=== PATIENT | male | born 1980 | race African-American/Black ===

== ENCOUNTER 2019-01-30 18:43 | Inpatient (IN) | payer SELFPAY ==
[2019-01-30] MEDS ORDERED: IPRATROPIUM/ALBUTEROL 0.5-2.5 MG/3 ML AMPUL NEB ONE ×4 (18:47→22:00)
[2019-01-30] MEDS ORDERED: MAGNESIUM SULFATE/D5W 2 GM/200 ML RTUPB IV ONE (18:48)
[2019-01-30] MEDS ORDERED: METHYLPREDNISOLONE INJ 125 MG/2 ML SDV ONE (18:48)
[2019-01-30] MEDS ORDERED: METHYLPREDNISOLONE INJ 125 MG/2 ML SDV IV ONE (18:51)
[2019-01-30] MEDS ORDERED: NORMAL SALINE 1000 ML 1,000 ML IV ONE (18:52)
[2019-01-30] MEDS: MAGNESIUM SULFATE/D5W 1 GM/100 ML RTUPB IV SCH ×2 (18:57→19:25)
--- NOTE | 2019-01-30 19:08 | ER Document Report ---
ED General - General Chief Complaint: Breathing Difficulty Stated Complaint: DIFFICULTY BREATHING Time Seen by Provider: 01/30/19 18:51 Notes: Patient is a 38-year-old male without chronic medical problems, reports a history of chronic tobacco abuse, presents in severe respiratory distress. For the past 2 days he has had increasing wheezing, shortness of breath, feels like he cannot breathe. Is also been coughing but no associated sputum production. He denies any history of similar symptoms in the past. He does not have a primary care doctor. Nothing seems to improve his symptoms. Any form of worsening or smoking exertion worsens his symptoms. He denies pleuritic pain or chest pain. No fever or constitutional symptoms. History is otherwise limited secondary to the patient's distress. TRAVEL OUTSIDE OF THE [place] IN LAST 30 DAYS: No - Related Data Allergies/Adverse Reactions: No Known Allergies Allergy (Unverified 01/30/19 18:48) Past Medical History - General Information source: Patient - Social History Smoking Status: Current Every Day Smoker Frequency of alcohol use: Occasional Drug Abuse: None Lives with: Spouse/Significant other Family History: Reviewed & Not Pertinent Review of Systems - Review of Systems Notes: Constitutional: Negative for fever. HENT: Negative for sore throat. Eyes: Negative for visual changes. Cardiovascular: Negative for chest pain. Respiratory: Positive for shortness of breath and cough Gastrointestinal: Negative for abdominal pain, vomiting or diarrhea. Genitourinary: Negative for dysuria. Musculoskeletal: Negative for back pain. Skin: Negative for rash. Neurological: Negative for headaches, weakness or numbness. 10 point ROS negative except as marked above and in HPI. Physical Exam - Vital signs Vitals: Resp Pulse Ox 25 H 99 01/30/19 18:51 01/30/19 18:51 Interpretation: Tachycardic, Tachypneic Notes: PHYSICAL EXAMINATION: GENERAL: In moderate to severe respiratory distress his weight HEAD: Atraumatic, normocephalic. EYES: Pupils equal round and reactive to light, extraocular movements intact, sclera anicteric, conjunctiva are normal. ENT: nares patent, oropharynx clear without exudates. Moderately dry mucous membranes. NECK: Normal range of motion, supple without lymphadenopathy LUNGS: Moderate to severe respiratory distress, tachypneic to 35-40 breaths/min. Diminished air movement throughout. Coarse wheezing in all lung bundy. Retracting in all spaces. HEART: Regular tachycardia without murmurs ABDOMEN: Soft, nontender, normoactive bowel sounds. No guarding, no rebound. No masses appreciated. EXTREMITIES: Normal range of motion, no pitting or edema. No cyanosis. NEUROLOGICAL: No focal neurological deficits. Moves all extremities spontaneously and on command. PSYCH: Anxious but appropriate to situation SKIN: Warm, Dry, normal turgor, no rashes or lesions noted. Course - Re-evaluation Re-evalutation: 01/30/19 18:53 Documentation is delayed as I was of this patient upon his arrival into the department. In summary the patient presents in moderate to severe respiratory distress. Unable to speak beyond 2 words in a sentence without requiring additional breath. Patient is retracting the supraclavicular intercostal spaces. He has poor air movement in all lung bundy and coarse expiratory wheezing in all lung bundy. He has no known history of obstructive lung disease. Does smoke. States that his symptoms been going on for 2 days but history is otherwise limited secondary to the patient's degree of distress. The patient was immediately started on continuous albuterol and ipratropium nebulizer. IV access was established. Patient will be given 2 g of magnesium rapidly over 10 minutes. Solu-Medrol 125 mg will be administered. 1 L of IV fluids will likely be administered. Labs, chest x-ray pending. Patient has been placed on continuous monitoring. He is high risk for decompensation, possible advancement for need for positive pressure ventilation. Will be reassessed at regular intervals. He is in guarded condition. 01/30/19 19:18 Chest x-ray is clear. Patient's work of breathing has markedly improved. He is now able to speak in full sentences, no longer having retractions. He does still have coarse respiratory wheezing in all lung bundy although his air movement is overall much improved. Will continue to monitor at regular intervals. He remains on continuous nebulizers. 01/30/19 20:42 Patient remains mildly tachypneic although saturating 97% on room air off nebulizers. Continues with coarse expiratory wheezing in all lung bundy. Will require hospitalization. Plan consult with hospitalist. 01/30/19 21:14 I have spoken with the on-call hospitalist who has accepted the patient for admission to the telemetry unit. - Vital Signs Vital signs: Temp Pulse Resp BP Pulse Ox 98.5 F 72 27 H 142/83 H 100 01/30/19 20:52 01/30/19 18:54 01/30/19 19:01 01/30/19 19:00 01/30/19 19:01 - Laboratory Result Diagrams: 01/30/19 19:00 01/30/19 19:00 Laboratory results interpreted by me: 01/30/19 01/30/19 19:00 19:00 Eosinophils % 7.0 H Calcium 10.7 H - Diagnostic Test Radiology reviewed: Image reviewed, Reports reviewed Radiology results interpreted by me: 01/30/19 21:13 Chest x-ray: No acute infiltrate or pneumothorax Critical Care Note - Critical Care Note Total time excluding time spent on procedures (mins): 36 Comments: Critical care time spent obtaining history from patient or surrogate, development of treatment plan with patient or surrogate, evaluation of patient's response to treatment, examination of patient, ordering and performing treatments and interventions, ordering and review of laboratory studies, re- evaluation of patient's condition, ordering and review of radiographic studies and review of old charts Discharge - Discharge Clinical Impression: Respiratory distress, Wheezing Asthma Qualifiers: Asthma severity: unspecified severity Asthma persistence: unspecified Asthma complication type: with acute exacerbation Qualified Code(s): J45.901 - Unspecified asthma with (acute) exacerbation Condition: Fair Disposition: ADMITTED INPATIENT Admitting Provider: Hospitalist Unit Admitted: Telemetry
[2019-01-30 19:14] LABS: ABSOLUTE BASOPHILS # (AUTO) 0.1 10^3/uL (0.0-0.2); ABSOLUTE EOSINOPHILS # (AUTO) 0.6 10^3/uL (0.0-0.6); ABSOLUTE LYMPHOCYTES (AUTO) 3.2 10^3/uL (0.5-4.7); ABSOLUTE MONOCYTES (AUTO) 0.8 10^3/uL (0.1-1.4); ABSOLUTE NEUT (AUTO) 4.3 10^3/uL (1.7-8.2); BASOPHILS % (AUTO) 0.9 % (0-2); HEMATOCRIT 47.6 % (37.9-51.0); HEMOGLOBIN 15.9 g/dL (13.5-17.0); LYMPHOCYTES % (AUTO) 35.4 % (13-45); MEAN CORPUSCULAR HEMOGLOBIN 29.9 pg (27.0-33.4); MEAN CORPUSCULAR HGB CONC 33.4 g/dL (32.0-36.0); MEAN CORPUSCULAR VOLUME 90 fl (80-97); MONOCYTES % (AUTO) 8.9 % (3-13); PLATELET COUNT 357 10^3/uL (150-450); RED BLOOD COUNT 5.32 10^6/uL (4.35-5.55); RED CELL DISTRIBUTION WIDTH 13.8 % (11.5-14.0); SEGMENTED NEUTROPHILS % (AUTO) 47.8 % (42-78); TOTAL CELLS COUNTED % (AUTO) 100 %
--- NOTE | 2019-01-30 19:14 | RADIOLOGY REPORT (SQ) ---
EXAM DESCRIPTION: CHEST SINGLE VIEW COMPLETED DATE/TIME: 01/30/2019 7:07 pm REASON FOR STUDY: sob COMPARISON: 12/19/2010 TECHNIQUE: Single frontal radiographic view of the chest acquired. NUMBER OF VIEWS: One view. LIMITATIONS: None. FINDINGS: LUNGS AND PLEURA: No pneumothorax. No consolidation or pleural effusion. MEDIASTINUM AND HILAR STRUCTURES: Stable. HEART AND VASCULAR STRUCTURES: Stable. BONES: No acute findings. HARDWARE: None in the chest. OTHER: No other significant finding. IMPRESSION: NO ACUTE FINDINGS. TECHNICAL DOCUMENTATION: JOB ID: [id number] [place]-72 2010 [employer]- All Rights Reserved Reading location - IP/workstation name: [email or web address]
[2019-01-30] MEDS ORDERED: ALBUTEROL SULFATE 0.083% NEB 2.5 MG/3 ML AMPUL NEB ONE ×2 (19:18→21:13)
[2019-01-30 19:24] LABS: ANION GAP 10 (5-19); BLOOD UREA NITROGEN 16 mg/dL (7-20); CALCIUM 10.7 mg/dL (8.4-10.2); CARBON DIOXIDE 30 mmol/L (22-30); CHLORIDE 102 mmol/L (98-107); GLUCOSE 88 mg/dL (75-110); POTASSIUM 4.3 mmol/L (3.6-5.0); SODIUM 141.5 mmol/L (137-145)
[2019-01-30] MEDS ORDERED: MAG HYDROX/AL HYDROX/SIMETH SUSP 30 ML UDCUP PO PRN (21:15)
[2019-01-30] MEDS ORDERED: ZOLPIDEM TARTRATE 5 MG TABLET PO PRN (21:15)
[2019-01-30] MEDS ORDERED: ONDANSETRON HCL INJ/PF 4 MG/2 ML SDV IV PRN (21:15)
[2019-01-30] MEDS ORDERED: ACETAMINOPHEN 325 MG TABLET PO PRN (21:15)
[2019-01-30] MEDS ORDERED: MAGNESIUM HYDROXIDE SUSP 30 ML UDCUP PO PRN (21:15)
[2019-01-30] MEDS ORDERED: ACETAMINOPHEN 650 MG SUPP.RECT PR PRN (21:15)
[2019-01-30] MEDS: FAMOTIDINE 20 MG TABLET PO SCH (22:00)
[2019-01-30] MEDS: GUAIFENESIN 600 MG TABLET.SA PO SCH (22:00)
[2019-01-30] MEDS ORDERED: CEFTRIAXONE 1 GM/D5W RTU 1 GM/50 ML RTUPB IV SCH (22:00)
[2019-01-30] MEDS ORDERED: AZITHROMYCIN INJ 500 MG VIAL IV ONE (23:00)
[2019-01-30] MEDS ORDERED: HYDRALAZINE HCL INJ/PF 20 MG/1 ML SDV IV PRN (23:10)
[2019-01-30] MEDS ORDERED: LORAZEPAM INJ 2 MG/1 ML VIAL IV PRN (23:10)
--- NOTE | 2019-01-30 23:11 | PDOC H&P ---
History of Present Illness Admission Date/PCP: 01/30/19 21:23 Primary CARE physician: None Patient complains of: Shortness of breath and wheezing History of Present Illness: BROOKE KRISHNAMURTHY is a 38 year old -Monegasque male with history of seasonal allergies as well as ongoing tobacco abuse who presented to the emergency room with acute onset of worsening cough as well as wheezing and dyspnea over the last 3 days. His cough has been mainly dry and congested with inability to expectorate. He denies any fever or chills. No chest pain or palpitations. No nausea or vomiting or abdominal pain. No leg pain or edema. Upon presentation to the emergency room, his blood pressure was 152/104 and later 142/83 with a pulse of 72, respiratory rate of 28 and temperature of 97.9 with a pulse oximetry of 96% on room air. Labs are remarkable for calcium of 10.7. The patient was given several nebulized duo nebs and albuterol in the ER as well as IV magnesium sulfate and IV Solu-Medrol and was still wheezing. He will be admitted to a medically monitored bed for further evaluation and management. Past Medical History Past Medical History: Ongoing tobacco abuse EENT History Note: Allergic rhinitis Past Surgical History Past Surgical History: Reports: None Social History Lives with: Spouse/Significant other Smoking Status: Current Every Day Smoker - Half a pack of cigars per day for 20 years Amount of Alcoholic Beverages Per Day: 3 beers per day Hx Recreational Drug Use: No Family History Family History: DM, Malignancy Parental Family History Reviewed: Yes Children Family History Reviewed: Yes Sibling(s) Family History Reviewed.: Yes Medication/Allergy Allergies/Adverse Reactions: No Known Allergies Allergy (Unverified 01/30/19 18:48) Review of Systems Review of Systems: As per history of present illness. All pertinent systems were reviewed above. Constitutional, HEENT, cardiovascular, respiratory, GI, , musculoskeletal, neuro, psychiatric, endocrine, integumentary and hematologic systems were reviewed and are otherwise negative/unremarkable except for positive findings mentioned above in the HPI. Physical Exam Vital Signs: Temp Pulse Resp BP Pulse Ox 98.5 F 72 23 H 144/70 H 96 01/30/19 20:52 01/30/19 18:54 01/30/19 22:01 01/30/19 22:00 01/30/19 22:01 Intake & Output 01/29/19 01/30/19 01/31/19 06:59 06:59 06:59 Intake Total 1200 Balance 1200 Weight 75 kg Exam: Generally: Pleasant middle-aged -Monegasque male in mild respiratory distress with conversational dyspnea Vital signs-as listed Head - atraumatic, normocephalic. Pupils - equal, round and reactive to light and accommodation. Extraocular movements are intact. No scleral icterus. Oropharynx - moist mucous membranes and tongue. No pharyngeal erythema or exudate. Neck - supple. No JVD. Carotid pulses 2+ bilaterally. No carotid bruits. No palpable thyromegaly or lymphadenopathy. Cardiovascular - regular rate and rhythm. Normal S1 and S2. No murmurs, gallops or rubs. Lungs -diffuse expiratory wheezes with tight expiratory airflow and occasional inspiratory wheezes and harsh vesicular breathing. Abdomen - soft and nontender. Positive bowel sounds. No palpable organomegaly or masses. Extremities - no pitting edema, clubbing or cyanosis. Neuro - grossly non-focal. Skin - no rashes. and rectal exam - deferred. Results Laboratory Results: 01/30/19 19:00 01/30/19 19:00 01/30/19 01/30/19 19:00 19:00 WBC 9.0 RBC 5.32 Hgb 15.9 Hct 47.6 MCV 90 MCH 29.9 MCHC 33.4 RDW 13.8 Plt Count 357 Seg Neutrophils % 47.8 Lymphocytes % 35.4 Monocytes % 8.9 Eosinophils % 7.0 H Basophils % 0.9 Absolute Neutrophils 4.3 Absolute Lymphocytes 3.2 Absolute Monocytes 0.8 Absolute Eosinophils 0.6 Absolute Basophils 0.1 Sodium 141.5 Potassium 4.3 Chloride 102 Carbon Dioxide 30 Anion Gap 10 BUN 16 Creatinine 1.20 Est GFR ( Amer) > 60 Est GFR (Non-Af Amer) > 60 Glucose 88 Calcium 10.7 H Impressions: Chest X-Ray 01/30/19 18:52 IMPRESSION: NO ACUTE FINDINGS. Assessment and Plan - Diagnosis (1) Acute bronchospasm Is this a current diagnosis for this admission?: Yes Plan: The patient has a prolonged history of tobacco abuse. He could be having underlying COPD developing and this presents a COPD exacerbation. He also has a history of allergic rhinitis and seasonal allergies and this could be a manifestation of new onset asthma exacerbation. The patient will be admitted to a medically monitored bed and will be placed on IV steroid therapy with IV Solu-Medrol as well as nebulized bronchodilator therapy with duonebs q.i.d. and q.4 hours p.r.n., mucolytic therapy with Mucinex and antibiotic therapy with IV Rocephin and Zithromax. Sputum Gram stain culture and sensitivity will be obtained. O2 protocol will be followed. (2) Acute bronchitis Is this a current diagnosis for this admission?: Yes Plan: He will be placed on IV Rocephin and Zithromax. Mucolytic's will be provided sputum Gram stain culture and sensitivity will be obtained. (3) Tobacco abuse Is this a current diagnosis for this admission?: Yes Plan: I counseled the patient for smoking cessation and the patient will receive further counseling here. (4) ETOH abuse Is this a current diagnosis for this admission?: Yes Plan: Will place on as needed IV Ativan and a banana bag daily (5) Elevated blood pressure reading Is this a current diagnosis for this admission?: Yes Plan: His blood pressure has improved after treatment with nebulized bronchodilator therapy. Will be followed while he is here. As needed hydralazine will be provided (6) Allergic rhinitis Is this a current diagnosis for this admission?: Yes Plan: No current exacerbation. (7) DVT prophylaxis Is this a current diagnosis for this admission?: Yes Plan: Substance Lovenox - Time Medications reviewed and adjusted accordingly: Yes Anticipated discharge: Home Within: within 36 hours - Inpatient Certification Medical Necessity: Need Close Monitoring Due to Risk of Patient Decompensation, Need for Nebulizer Therapy and Monitoring of Response, Risk of Complication if Not Cared For in Hospital - Plan Summary Plan Summary: The plan of care was discussed in details with the patient. I answered all questions. The patient agreed to proceed with the above-mentioned plan. The patient is presumably full code. This note was created by [employer] software and may contain typo errors that may have not been proofread.
[2019-01-30] MEDS ORDERED: THIAMINE HCL INJ 200 MG/2 ML VIAL IV ONE (23:59)
[2019-01-30] MEDS ORDERED: MAGNESIUM SULFATE INJ 8 MEQ/2 ML IV ONE (23:59)
[2019-01-30] MEDS ORDERED: MVI, ADULT NO.1 WITH VIT K INJ 10 ML VIAL IV ONE (23:59)
[2019-01-31] MEDS ORDERED: AZITHROMYCIN INJ 500 MG VIAL IV ONE (01:21)
[2019-01-31] MEDS: NORMAL SALINE 1000 ML 1,000 ML IV PRN ×3 (02:08→23:30)
[2019-01-31] MEDS ORDERED: MVI, ADULT NO.1 WITH VIT K INJ 10 ML VIAL IV ONE ×4 (02:30→10:00)
[2019-01-31] MEDS ORDERED: POTASSI CL 20 MEQ/NS 1L 1,000 ML IV ONE ×2 (02:30→03:00)
[2019-01-31] MEDS ORDERED: THIAMINE HCL INJ 200 MG/2 ML VIAL IV ONE ×3 (02:30→03:00)
[2019-01-31] MEDS ORDERED: MAGNESIUM SULFATE INJ 8 MEQ/2 ML IV ONE ×3 (02:30→03:00)
[2019-01-31] MEDS ORDERED: IPRATROPIUM/ALBUTEROL 0.5-2.5 MG/3 ML AMPUL NEB PRN ×2 (04:47→08:00)
[2019-01-31 06:25] LABS: ABSOLUTE LYMPHOCYTES (AUTO) 1.1 10^3/uL (0.5-4.7); ABSOLUTE MONOCYTES (AUTO) 0.6 10^3/uL (0.1-1.4); ABSOLUTE NEUT (AUTO) 11.8 10^3/uL (1.7-8.2); BASOPHILS % (AUTO) 0.2 % (0-2); HEMATOCRIT 41.9 % (37.9-51.0); HEMOGLOBIN 14.1 g/dL (13.5-17.0); LYMPHOCYTES % (AUTO) 7.9 % (13-45); MEAN CORPUSCULAR HEMOGLOBIN 29.9 pg (27.0-33.4); MEAN CORPUSCULAR HGB CONC 33.7 g/dL (32.0-36.0); MEAN CORPUSCULAR VOLUME 89 fl (80-97); MONOCYTES % (AUTO) 4.8 % (3-13); PLATELET COUNT 277 10^3/uL (150-450); RED BLOOD COUNT 4.74 10^6/uL (4.35-5.55); RED CELL DISTRIBUTION WIDTH 13.7 % (11.5-14.0); SEGMENTED NEUTROPHILS % (AUTO) 87.1 % (42-78); TOTAL CELLS COUNTED % (AUTO) 100 %; WHITE BLOOD COUNT 13.5 10^3/uL (4.0-10.5)
[2019-01-31 06:46] LABS: ANION GAP 15 (5-19); BLOOD UREA NITROGEN 11 mg/dL (7-20); CALCIUM 10.4 mg/dL (8.4-10.2); CARBON DIOXIDE 22 mmol/L (22-30); CHLORIDE 104 mmol/L (98-107); GLUCOSE 117 mg/dL (75-110); POTASSIUM 4.6 mmol/L (3.6-5.0)
[2019-01-31] MEDS: ENOXAPARIN SODIUM INJ 40 MG/0.4 ML DISP.SYRIN SUBCUT SCH (09:08)
[2019-01-31] MEDS: GUAIFENESIN 600 MG TABLET.SA PO SCH ×2 (09:08→23:36)
[2019-01-31] MEDS: FAMOTIDINE 20 MG TABLET PO SCH ×2 (09:08→23:36)
[2019-01-31] MEDS ORDERED: IPRATROPIUM/ALBUTEROL 0.5-2.5 MG/3 ML AMPUL NEB ONE (12:45)
--- NOTE | 2019-01-31 14:25 | PDOC PROGRESS REPORT ---
Subjective Progress Note for:: 01/31/19 Subjective:: BROOKE KRISHNAMURTHY is a 38 year old -[place]ese male with history of seasonal allergies as well as ongoing tobacco abuse who presented to the emergency room with acute onset of worsening cough as well as wheezing and dyspnea over the last 3 days. He was admitted to the hospitalist service for asthma vs. COPD exacerbation. The patient was seen this morning on rounds, he is resting comfortably in bed on room the patient endorses shortness of breath but states he feels much better than yesterday. Wheezing can be auscultated in all lung bundy. The patient endorses a dry cough. No evidence of central or peripheral cyanosis. 125 mg Solu-Medrol was administered in the emergency department, plan to continue scheduled IV steroids. Increased frequency of DuoNeb treatments from every 6 hours to every 4 hours. The patient was being treated with Rocephin and azithromycin, a treatment regimen typically used for community-acquired pneumonia. However, there are no infiltrates present on CXR and patient endorses a nonproductive cough. Discontinue Rocephin and azithromycin, switched to doxycycline, indicated for empiric antibiotic treatment in patients with mild COPD exacerbation. Reason For Visit: COPD EXACERBATION Physical Exam Vital Signs: Temp Pulse Resp BP Pulse Ox 97.3 F 88 20 148/83 H 96 01/31/19 08:05 01/31/19 12:26 01/31/19 12:26 01/31/19 08:05 01/31/19 12:26 Intake & Output 01/30/19 01/31/19 02/01/19 06:59 06:59 06:59 Intake Total 1200 1050 Balance 1200 1050 Weight 72.9 kg General appearance: PRESENT: well-developed, well-nourished Eye exam: PRESENT: conjunctiva pink, PERRLA Mouth exam: PRESENT: moist, tongue midline Teeth exam: PRESENT: poor dentation Neck exam: PRESENT: full ROM Respiratory exam: PRESENT: symmetrical, unlabored, wheezes Cardiovascular exam: PRESENT: +S1, +S2 Pulses: PRESENT: normal radial pulses, normal dorsalis pedis pul Vascular exam: PRESENT: normal capillary refill GI/Abdominal exam: PRESENT: soft. ABSENT: distended, tenderness Rectal exam: PRESENT: deferred Extremities exam: PRESENT: full ROM. ABSENT: pedal edema Musculoskeletal exam: PRESENT: ambulatory, full ROM Neurological exam: PRESENT: alert, awake, oriented to person, oriented to place, oriented to time, oriented to situation Psychiatric exam: PRESENT: appropriate affect Skin exam: PRESENT: dry, intact, normal color Results Laboratory Results: 01/31/19 06:16 01/31/19 06:16 01/30/19 01/30/19 01/31/19 19:00 19:00 06:16 WBC 9.0 13.5 H RBC 5.32 4.74 Hgb 15.9 14.1 Hct 47.6 41.9 MCV 90 89 MCH 29.9 29.9 MCHC 33.4 33.7 RDW 13.8 13.7 Plt Count 357 277 Seg Neutrophils % 47.8 87.1 H Lymphocytes % 35.4 7.9 L Monocytes % 8.9 4.8 Eosinophils % 7.0 H 0.0 Basophils % 0.9 0.2 Absolute Neutrophils 4.3 11.8 H Absolute Lymphocytes 3.2 1.1 Absolute Monocytes 0.8 0.6 Absolute Eosinophils 0.6 0.0 Absolute Basophils 0.1 0.0 Sodium 141.5 Potassium 4.3 Chloride 102 Carbon Dioxide 30 Anion Gap 10 BUN 16 Creatinine 1.20 Est GFR ( Amer) > 60 Est GFR (Non-Af Amer) > 60 Glucose 88 Calcium 10.7 H 01/31/19 06:16 WBC RBC Hgb Hct MCV MCH MCHC RDW Plt Count Seg Neutrophils % Lymphocytes % Monocytes % Eosinophils % Basophils % Absolute Neutrophils Absolute Lymphocytes Absolute Monocytes Absolute Eosinophils Absolute Basophils Sodium 141.0 Potassium 4.6 Chloride 104 Carbon Dioxide 22 Anion Gap 15 BUN 11 Creatinine 1.04 Est GFR ( Amer) > 60 Est GFR (Non-Af Amer) > 60 Glucose 117 H Calcium 10.4 H Impressions: Chest X-Ray 01/30/19 18:52 IMPRESSION: NO ACUTE FINDINGS. Status: Imported from PACS Assessment and Plan - Diagnosis (1) Respiratory distress Is this a current diagnosis for this admission?: Yes Plan: Likely stemming from undiagnosed emphysema/COPD Patient endorses 20-year history of smoking 1.5 pack/day CXR shows no evidence of PNA, appears to demonstrate chronic changes associated with COPD - flattened diaphragm, widened intercostal spaces, etc. Maintains SPO2>88% on room air Scheduled and as needed nebulizer treatments Scheduled IV Solu-Medrol Scheduled inhalers Plan for pulmonary function test Counseled patient on the need for smoking cessation (2) ETOH abuse Is this a current diagnosis for this admission?: Yes Plan: Patient endorses history of heavy EtOH use Daily thiamine and folate (3) Tobacco abuse Is this a current diagnosis for this admission?: Yes Plan: Patient endorses 20 years of smoking 1-1.5 packs/day Patient states he is ready to quit Denies cravings, no nicotine patch - Time Time Spent with patient: 15-24 minutes Medications reviewed and adjusted accordingly: Yes Anticipated discharge: Home - Inpatient Certification Based on my medical assessment, after consideration of the patient's comorbidities, presenting symptoms, or acuity I expect that the services needed warrant INPATIENT care.: Yes I certify that my determination is in accordance with my understanding of Medicare's requirements for reasonable and necessary INPATIENT services [42 CFR 412.3e].: Yes Medical Necessity: Need For Continuous Telemetry Monitoring, Need for Nebulizer Therapy and Monitoring of Response, Risk of Complication if Not Cared For in Hospital
[2019-01-31] MEDS: IPRATROPIUM/ALBUTEROL 0.5-2.5 MG/3 ML AMPUL NEB SCH ×2 (14:55→19:56)
[2019-01-31] MEDS: TIOTROPIUM BROMIDE DPI 5 CAP/KIT (18 MCG/CAP) IH SCH (15:58)
[2019-01-31] MEDS: MULTIVITAMIN TABLET PO SCH (15:58)
[2019-01-31] MEDS: FOLIC ACID 1 MG TABLET PO SCH (15:58)
[2019-01-31] MEDS: METHYLPREDNISOLONE INJ 40 MG/1 ML SDV IV SCH (17:10)
[2019-01-31] MEDS ORDERED: NORMAL SALINE 1000 ML 1,000 ML with POTASSIUM CHLORIDE 20 MEQ, MAGNESIUM SULFATE 8 MEQ,... IV SCH ×5 (18:00)
[2019-01-31] MEDS: DOXYCYCLINE HYCLATE 100 MG TABLET PO SCH (23:37)
[2019-01-31] MEDS: SALMETEROL XINAFOATE DISKUS 50 MCG/1 DOSE 28 DOSE IH SCH (23:40)
[2019-01-31] MEDS ORDERED: POTASSI CL 20 MEQ/NS 1L 1,000 ML IV PRN (23:59)
[2019-02-01] MEDS: METHYLPREDNISOLONE INJ 40 MG/1 ML SDV IV SCH ×4 (00:50→22:44)
[2019-02-01] MEDS: IPRATROPIUM/ALBUTEROL 0.5-2.5 MG/3 ML AMPUL NEB SCH ×3 (02:23→17:47)
[2019-02-01 05:20] LABS: ABSOLUTE BASOPHILS # (AUTO) 0.1 10^3/uL (0.0-0.2); ABSOLUTE EOSINOPHILS # (AUTO) 0.1 10^3/uL (0.0-0.6); ABSOLUTE LYMPHOCYTES (AUTO) 1.1 10^3/uL (0.5-4.7); ABSOLUTE MONOCYTES (AUTO) 0.2 10^3/uL (0.1-1.4); ABSOLUTE NEUT (AUTO) 12.5 10^3/uL (1.7-8.2); BASOPHILS % (AUTO) 0.5 % (0-2); EOSINOPHILS % (AUTO) 0.4 % (0-6); HEMATOCRIT 40.7 % (37.9-51.0); HEMOGLOBIN 13.9 g/dL (13.5-17.0); LYMPHOCYTES % (AUTO) 7.8 % (13-45); MEAN CORPUSCULAR HEMOGLOBIN 30.1 pg (27.0-33.4); MEAN CORPUSCULAR HGB CONC 34.1 g/dL (32.0-36.0); MEAN CORPUSCULAR VOLUME 88 fl (80-97); MONOCYTES % (AUTO) 1.4 % (3-13); PLATELET COUNT 279 10^3/uL (150-450); RED BLOOD COUNT 4.61 10^6/uL (4.35-5.55); RED CELL DISTRIBUTION WIDTH 13.8 % (11.5-14.0); SEGMENTED NEUTROPHILS % (AUTO) 89.9 % (42-78); TOTAL CELLS COUNTED % (AUTO) 100 %; WHITE BLOOD COUNT 13.9 10^3/uL (4.0-10.5)
[2019-02-01 05:44] LABS: ALANINE AMINOTRANSFERASE 28 U/L (21-72); ALBUMIN 4.2 g/dL (3.5-5.0); ALKALINE PHOSPHATASE 63 U/L (38-126); ANION GAP 10 (5-19); ASPARTATE AMINO TRANSFERASE 27 U/L (17-59); BILIRUBIN,DIRECT 0.4 mg/dL (0.0-0.4); BILIRUBIN,TOTAL 0.7 mg/dL (0.2-1.3); BLOOD UREA NITROGEN 13 mg/dL (7-20); CALCIUM 10.3 mg/dL (8.4-10.2); CARBON DIOXIDE 23 mmol/L (22-30); CHLORIDE 105 mmol/L (98-107); GLUCOSE 119 mg/dL (75-110); POTASSIUM 4.9 mmol/L (3.6-5.0); SODIUM 137.7 mmol/L (137-145); TOTAL PROTEIN 7.7 g/dL (6.3-8.2)
[2019-02-01] MEDS: FAMOTIDINE 20 MG TABLET PO SCH ×2 (09:25→22:44)
[2019-02-01] MEDS: FOLIC ACID 1 MG TABLET PO SCH (09:26)
[2019-02-01] MEDS: MULTIVITAMIN TABLET PO SCH (09:26)
[2019-02-01] MEDS: LORATADINE 10 MG TABLET PO SCH (09:26)
[2019-02-01] MEDS: DOXYCYCLINE HYCLATE 100 MG TABLET PO SCH ×2 (09:26→22:44)
[2019-02-01] MEDS: GUAIFENESIN 600 MG TABLET.SA PO SCH ×2 (09:26→22:44)
[2019-02-01] MEDS: ENOXAPARIN SODIUM INJ 40 MG/0.4 ML DISP.SYRIN SUBCUT SCH (09:27)
[2019-02-01] MEDS: TIOTROPIUM BROMIDE DPI 5 CAP/KIT (18 MCG/CAP) IH SCH (09:27)
[2019-02-01] MEDS: SALMETEROL XINAFOATE DISKUS 50 MCG/1 DOSE 28 DOSE IH SCH (09:28)
[2019-02-01] MEDS ORDERED: ACETAMINOPHEN 650 MG SUPP.RECT PR PRN (09:54)
[2019-02-01] MEDS ORDERED: ALBUTEROL SULFATE 0.083% NEB 2.5 MG/3 ML AMPUL NEB PRN (10:53)
--- NOTE | 2019-02-01 17:19 | PDOC PROGRESS REPORT ---
Subjective Progress Note for:: 02/01/19 Subjective:: BROOKE KRISHNAMURTHY is a 38 year old male with history of seasonal allergies as well as ongoing tobacco abuse who presented to the emergency room with acute onset of worsening cough as well as wheezing and dyspnea over the last 3 days. He was admitted to the hospitalist service for asthma vs. COPD exacerbation. The patient was seen was found sitting up to the edge of the bed comfortably on room air. He does report that he is feeling much better. He does continue to have shortness of breath with minimal activity and audible wheezing. Overall he reports that his symptoms are much improved from the time of his admission. He denies fever, chills, chest pain, palpitations, dyspnea while at rest, orthopnea, abdominal pain, nausea vomiting and diarrhea. He has no new questions or concerns. No concerns per nursing Reason For Visit: COPD EXACERBATION Physical Exam Vital Signs: Temp Pulse Resp BP Pulse Ox 97.6 F 93 16 138/63 H 91 L 02/01/19 08:29 02/01/19 09:06 02/01/19 09:06 02/01/19 08:29 02/01/19 09:06 Intake & Output 01/31/19 02/01/19 02/02/19 06:59 06:59 06:59 Intake Total 1200 3500 1000 Balance 1200 3500 1000 Weight 72.9 kg 71.7 kg General appearance: PRESENT: no acute distress, well-developed, well-nourished Head exam: PRESENT: atraumatic, normocephalic Eye exam: PRESENT: conjunctiva pink, EOMI, PERRLA. ABSENT: scleral icterus Ear exam: PRESENT: normal external ear exam Mouth exam: PRESENT: moist, tongue midline Neck exam: ABSENT: carotid bruit, JVD, lymphadenopathy, thyromegaly Respiratory exam: PRESENT: symmetrical, unlabored, wheezes - Throughout. ABSENT: rales, rhonchi Cardiovascular exam: PRESENT: RRR. ABSENT: diastolic murmur, rubs, systolic murmur Pulses: PRESENT: normal dorsalis pedis pul Vascular exam: PRESENT: normal capillary refill GI/Abdominal exam: PRESENT: normal bowel sounds, soft. ABSENT: distended, guarding, mass, organolmegaly, rebound, tenderness Rectal exam: PRESENT: deferred Extremities exam: PRESENT: full ROM. ABSENT: calf tenderness, clubbing, pedal edema Neurological exam: PRESENT: alert, awake, oriented to person, oriented to place, oriented to time, oriented to situation, CN II-XII grossly intact. ABSENT: motor sensory deficit Psychiatric exam: PRESENT: appropriate affect, normal mood. ABSENT: homicidal ideation, suicidal ideation Skin exam: PRESENT: dry, intact, warm. ABSENT: cyanosis, rash Results Laboratory Results: 02/01/19 04:57 02/01/19 04:57 02/01/19 02/01/19 02/01/19 04:57 04:57 04:57 WBC 13.9 H RBC 4.61 Hgb 13.9 Hct 40.7 MCV 88 MCH 30.1 MCHC 34.1 RDW 13.8 Plt Count 279 Seg Neutrophils % 89.9 H Lymphocytes % 7.8 L Monocytes % 1.4 L Eosinophils % 0.4 Basophils % 0.5 Absolute Neutrophils 12.5 H Absolute Lymphocytes 1.1 Absolute Monocytes 0.2 Absolute Eosinophils 0.1 Absolute Basophils 0.1 Sodium 137.7 Potassium 4.9 Chloride 105 Carbon Dioxide 23 Anion Gap 10 BUN 13 Creatinine 1.02 Est GFR ( Amer) > 60 Est GFR (Non-Af Amer) > 60 Glucose 119 H Calcium 10.3 H Magnesium 2.0 Total Bilirubin 0.7 AST 27 ALT 28 Alkaline Phosphatase 63 Total Protein 7.7 Albumin 4.2 Impressions: Chest X-Ray 01/30/19 18:52 IMPRESSION: NO ACUTE FINDINGS. Assessment and Plan - Diagnosis (1) COPD exacerbation Is this a current diagnosis for this admission?: Yes Plan: Improved; patient is now maintaining oxygen saturations on room air. Secondary to COPD (new diagnosis) exacerbation. Patient endorses 20-year history of smoking 1.5 pack/day CXR shows no evidence of PNA, appears to demonstrate chronic changes associated with COPD - flattened diaphragm, widened intercostal spaces, etc. Initial PFT demonstrates severe obstructive lung disease; final report not yet available He is admitted to [facility] on continuous cardiac telemetry. He is provided supplemental oxygen as needed to maintain saturations >89% Scheduled and as needed nebulizer treatments; have begun weaning frequency of scheduled nebs. Scheduled IV Solu-Medrol; have begun weaning steroids. Continue doxycycline for COPD exacerbation with bronchitis. Resume home dose Claritin. Mucinex twice daily. Flutter valve to bedside. (2) Tobacco abuse Is this a current diagnosis for this admission?: Yes Plan: Patient endorses 20 years of smoking 1-1.5 packs/day Patient states he is ready to quit Nicotine replacement therapies are offered; continues to be declined by patient. (3) ETOH abuse Is this a current diagnosis for this admission?: Yes Plan: Patient endorses history of heavy EtOH use Daily thiamine and folate Monitor closely for evidence of EtOH withdrawal; PRN IV Ativan available as needed for anxiety/agitation/withdrawal symptoms. (4) Respiratory distress Is this a current diagnosis for this admission?: Yes Plan: Resolved. Secondary to COPD exacerbation; management as above. - Time Time Spent with patient: 15-24 minutes Medications reviewed and adjusted accordingly: Yes Anticipated discharge: Home Within: within 48 hours
[2019-02-02] MEDS: IPRATROPIUM/ALBUTEROL 0.5-2.5 MG/3 ML AMPUL NEB SCH ×2 (00:01→08:16)
[2019-02-02] MEDS: METHYLPREDNISOLONE INJ 40 MG/1 ML SDV IV SCH (05:08)
[2019-02-02 05:36] LABS: ABSOLUTE LYMPHOCYTES (AUTO) 1.8 10^3/uL (0.5-4.7); ABSOLUTE MONOCYTES (AUTO) 0.5 10^3/uL (0.1-1.4); ABSOLUTE NEUT (AUTO) 13.2 10^3/uL (1.7-8.2); BASOPHILS % (AUTO) 0.2 % (0-2); HEMATOCRIT 41.6 % (37.9-51.0); HEMOGLOBIN 14.1 g/dL (13.5-17.0); LYMPHOCYTES % (AUTO) 11.3 % (13-45); MEAN CORPUSCULAR HGB CONC 33.9 g/dL (32.0-36.0); MEAN CORPUSCULAR VOLUME 89 fl (80-97); MONOCYTES % (AUTO) 3.4 % (3-13); PLATELET COUNT 321 10^3/uL (150-450); RED CELL DISTRIBUTION WIDTH 13.9 % (11.5-14.0); SEGMENTED NEUTROPHILS % (AUTO) 85.1 % (42-78); TOTAL CELLS COUNTED % (AUTO) 100 %; WHITE BLOOD COUNT 15.6 10^3/uL (4.0-10.5)
[2019-02-02 06:03] LABS: ANION GAP 12 (5-19); BLOOD UREA NITROGEN 17 mg/dL (7-20); CARBON DIOXIDE 23 mmol/L (22-30); CHLORIDE 102 mmol/L (98-107); GLUCOSE 113 mg/dL (75-110); POTASSIUM 4.9 mmol/L (3.6-5.0); SODIUM 136.9 mmol/L (137-145)
[2019-02-02] MEDS: GUAIFENESIN 600 MG TABLET.SA PO SCH (10:34)
[2019-02-02] MEDS: FAMOTIDINE 20 MG TABLET PO SCH (10:34)
[2019-02-02] MEDS: MULTIVITAMIN TABLET PO SCH (10:34)
[2019-02-02] MEDS: LORATADINE 10 MG TABLET PO SCH (10:34)
[2019-02-02] MEDS: FOLIC ACID 1 MG TABLET PO SCH (10:34)
[2019-02-02] MEDS: TIOTROPIUM BROMIDE DPI 5 CAP/KIT (18 MCG/CAP) IH SCH (10:34)
[2019-02-02] MEDS: DOXYCYCLINE HYCLATE 100 MG TABLET PO SCH (10:34)
[2019-02-02] MEDS: ENOXAPARIN SODIUM INJ 40 MG/0.4 ML DISP.SYRIN SUBCUT SCH (10:38)
[2019-02-02 11:07] VITALS: BP 122/64
--- NOTE | 2019-02-06 20:14 | PDOC DISCHARGE SUMMARY ---
General - Admit/Disc Date/PCP Admission Date/Primary Care Provider: 01/30/19 21:23 Discharge Date: 02/02/19 - Discharge Diagnosis (1) COPD exacerbation Is this a current diagnosis for this admission?: Yes Summary: Improved; acute exacerbation has resolved. Patient is now asymptomatic and maintaining oxygen saturations on room air. Secondary to COPD (new diagnosis) Patient endorses 20-year history of smoking 1.5 pack/day CXR shows no evidence of PNA, appears to demonstrate chronic changes associated with COPD - flattened diaphragm, widened intercostal spaces, etc. Initial PFT demonstrates severe obstructive lung disease; final report not yet available He was admitted to [facility] on continuous cardiac telemetry and provided supplemental oxygen as needed to maintain saturations >89%, scheduled and as needed nebulizer treatments, and IV Solu-Medrol. Solu-Medrol has been weaned to p.o. prednisone at discharge. He was placed on p.o. doxycycline for COPD exacerbation with bronchitis and provided a prescription to complete the course of therapy post discharge. Continue home dose Claritin. He is encouraged to STOP smoking and continue Flutter valve use at home. He is started on Spriva and Servent maintenance therapy. The patient is discharged in stable condition, asymptomatic (other than occasional slight wheezing), and maintaining oxygen saturation while ambulatory on room air. He is advised of the importance of discontinuing his tobacco use. He is instructed to follow up with his PCP within 1 week and to return to the emergency department as needed for concerning symptoms. (2) Tobacco abuse Is this a current diagnosis for this admission?: Yes Summary: Patient endorses 20 years of smoking 1-1.5 packs/day Patient states he is ready to quit. Prescription for NicoDerm patches is provided at discharge. (3) ETOH abuse Is this a current diagnosis for this admission?: Yes Summary: Patient endorses history of heavy EtOH use; no symptoms of withdrawal during admission. Advised decreased alcohol consumption. Recommend daily multivitamin, thiamine and folate supplementation. (4) Respiratory distress Is this a current diagnosis for this admission?: Yes Summary: Resolved. Secondary to COPD exacerbation; management as above. - Additional Information Discharge Diet: Regular Discharge Activity: Activity As Tolerated Prescriptions: Albuterol Sulfate [Albuterol Sulfate Hfa] 8.5 gm IH Q4HP PRN #1 hfa.aer.ad PRN Reason: Doxycycline Hyclate [Vibramycin 100 mg Tablet] 100 mg PO Q12 #10 tablet Guaifenesin [Mucinex Sr 600 mg Tablet.sa] 600 mg PO Q12 #14 tablet.sa Nicotine [Nicoderm 21 mg/24 Hr Transderm Patch] 1 patch TD DAILY #30 patch.td24 Prednisone [Deltasone] 20 mg PO ASDIR PRN #20 tablet PRN Reason: Salmeterol Xinafoate [Serevent Diskus 50 Mcg/Dose 28 Dose/Diskus] 50 mcg IH Q12 #1 disk Tiotropium [place] [Spiriva Handihaler 5 Cap/Kit (18 Mcg/Cap)] 1 cap IH DAILY #1 kit Home Medications: Loratadine [Claritin 10 mg Tablet] 10 mg PO DAILY 01/31/19 Multivitamin [Tab-A-Scar (Multiple Vitamin) Tablet] 1 tab PO DAILY 01/31/19 Acetaminophen [Tylenol 325 mg Tablet] 650 mg PO Q4HP PRN tablet 02/02/19 Albuterol Sulfate [Albuterol Sulfate Hfa] 8.5 gm IH Q4HP PRN #1 hfa.aer.ad 02/02/19 Doxycycline Hyclate [Vibramycin 100 mg Tablet] 100 mg PO Q12 #10 tablet 02/02/19 Folic Acid [Folvite 1 mg Tablet] 1 mg PO DAILY #0 tablet 02/02/19 Guaifenesin [Mucinex Sr 600 mg Tablet.sa] 600 mg PO Q12 #14 tablet.sa 02/02/19 Multivitamin [Tab-A-Scar (Multiple Vitamin) Tablet] 1 tab PO DAILY tablet 02/02/19 Nicotine [Nicoderm 21 mg/24 Hr Transderm Patch] 1 patch TD DAILY #30 patch.td24 02/02/19 Prednisone [Deltasone] 20 mg PO ASDIR PRN #20 tablet 02/02/19 Salmeterol Xinafoate [Serevent Diskus 50 Mcg/Dose 28 Dose/Diskus] 50 mcg IH Q12 #1 disk 02/02/19 Tiotropium [place] [Spiriva Handihaler 5 Cap/Kit (18 Mcg/Cap)] 1 cap IH DAILY #1 kit 02/02/19 History of Present Illness History of Present Illness: Per H&P by Dr. Rausch: BROOKE KRISHNAMURTHY is a 38 year old -Turk[place] male with history of seasonal allergies as well as ongoing tobacco abuse who presented to the emergency room with acute onset of worsening cough as well as wheezing and dyspnea over the last 3 days. His cough has been mainly dry and congested with inability to expectorate. He denies any fever or chills. No chest pain or palpitations. No nausea or vomiting or abdominal pain. No leg pain or edema. Upon presentation to the emergency room, his blood pressure was 152/104 and later 142/83 with a pulse of 72, respiratory rate of 28 and temperature of 97.9 with a pulse oximetry of 96% on room air. Labs are remarkable for calcium of 10.7. The patient was given several nebulized duo nebs and albuterol in the ER as well as IV magnesium sulfate and IV Solu-Medrol and was still wheezing. He will be admitted to a medically monitored bed for further evaluation and management. Physical Exam Vital Signs: Temp Pulse Resp BP Pulse Ox 98.1 F 72 16 122/64 97 02/02/19 11:05 02/02/19 11:05 02/02/19 11:05 02/02/19 11:05 02/02/19 11:05 General appearance: PRESENT: no acute distress, well-developed, well-nourished Head exam: PRESENT: atraumatic, normocephalic Eye exam: PRESENT: conjunctiva pink, EOMI, PERRLA. ABSENT: scleral icterus Mouth exam: PRESENT: moist, tongue midline Neck exam: ABSENT: carotid bruit, JVD, lymphadenopathy, thyromegaly Respiratory exam: PRESENT: symmetrical, unlabored, wheezes - Slight end expiratory wheeze. ABSENT: rales, rhonchi Cardiovascular exam: PRESENT: RRR. ABSENT: diastolic murmur, rubs, systolic murmur Pulses: PRESENT: normal dorsalis pedis pul Vascular exam: PRESENT: normal capillary refill GI/Abdominal exam: PRESENT: normal bowel sounds, soft. ABSENT: distended, guarding, mass, organolmegaly, rebound, tenderness Rectal exam: PRESENT: deferred Extremities exam: PRESENT: full ROM. ABSENT: calf tenderness, clubbing, pedal edema Neurological exam: PRESENT: alert, awake, oriented to person, oriented to place, oriented to time, oriented to situation, CN II-XII grossly intact. ABSENT: motor sensory deficit Psychiatric exam: PRESENT: appropriate affect, normal mood. ABSENT: homicidal ideation, suicidal ideation Skin exam: PRESENT: dry, intact, warm. ABSENT: cyanosis, rash Results Laboratory Results: 02/02/19 05:03 02/02/19 05:03 Impressions: Chest X-Ray 01/30/19 18:52 IMPRESSION: NO ACUTE FINDINGS. Qualifiers - * PATIENT BEING DISCHARGED WITH ANY OF THE FOLLOWING DIAGNOSIS: No Plan Discharge Plan: Follow up with PCP in 1 week. Recommend continued maintenance therapy (Serevent/Spiriva). STOP smoking. Return to the ED as needed for concerning symptoms. Time Spent: Less than 30 Minutes
--- NOTE | 2019-02-08 16:02 | Pulmonary Function Test ---
Pulmonary Function Test Date of Procedure:: 01/31/19 INDICATION:: Dyspnea Referring Provider: Jennifer Vieira NP Button Broacher: Shyla Price REED DIPPER - Report Spirometry: FVC 2.85 L 59% postbronchodilator 3.02 L 63% FEV1 1.46 L 36% postbronchodilator 1.44 L 37% FEV1/FVC % 52 postbronchodilator 48 predicted 82 FEF 25-75% 1.15 L 29% postbronchodilator 0.83 L 21% Impression: Obstructive ventilatory defect with insignificant response to bronchodilator therapy. This in and of itself does not preclude a clinical trial of bronchodilator therapy. Restrictive defect is possible but cannot be diagnosed on the basis of spirometry alone. (Restrictive defect may mask the degree of obstruction)
== END 2019-02-02 12:45 | disposition home or self-care (01) | DRG 192 ==
LOC: ER 18:43 → EH 21:23 → 3W 23:59
PROVIDERS: ADMIT Family Medicine; ATTEND Family Medicine
PROC: 3E0F3GC Introduction of Other Therapeutic Substance into Respiratory Tract, Percutaneous Approach (ICD-10-PCS; principal; 2019-02-01)
PROC: 3E02340 Introduction of Influenza Vaccine into Muscle, Percutaneous Approach (ICD-10-PCS; 2019-02-02)
DX: J44.0 Chronic obstructive pulmonary disease with (acute) lower respiratory infection (principal); J44.1 Chronic obstructive pulmonary disease with (acute) exacerbation; F10.10 Alcohol abuse, uncomplicated; J30.2 Other seasonal allergic rhinitis; F17.210 Nicotine dependence, cigarettes, uncomplicated; J20.9 Acute bronchitis, unspecified; R03.0 Elevated blood-pressure reading, without diagnosis of hypertension; Z23 Encounter for immunization; Z71.6 Tobacco abuse counseling
CPT/HCPCS: 36415; 71045; 80048; 80053; 83735; 85025; 87040; 90686; 94060; 94640; 94667; 96361; 96365; 96375; 99291; J0456; J0696; J1650; J2920; J2930; J3411; J3475; J3490; J7030; J7620